=== PATIENT | male | born 1990 | race Caucasian/White ===

== ENCOUNTER 2019-03-31 18:04 | Emergency (ER) | payer SELFPAY ==
[~2019-03-31] VITALS: Ht 165.1 cm; Wt 80.0 kg
[2019-03-31 18:15] VITALS: BP 113/63
== END 2019-03-31 22:26 | disposition left against medical advice (07) ==
LOC: ER 18:04
DX: Z53.21 Procedure and treatment not carried out due to patient leaving prior to being seen by health care provider (principal)